=== PATIENT | male | born 1995 | race Caucasian/White ===

== ENCOUNTER 2019-06-05 15:15 | Emergency (ER) | payer MEDICAID ==
[~2019-06-05] VITALS: Ht 175.3 cm; Wt 77.3 kg
[2019-06-05 15:44] VITALS: Ht 175.3 cm; Wt 77.3 kg
[2019-06-05 18:32] VITALS: BP 117/63
[2019-06-12 15:10] LABS: AEROBE ID Final report (())
== END 2019-06-05 18:00 | disposition home or self-care (01) ==
LOC: D.ER 15:15
PROVIDERS: Family Medicine
DX: J06.9 Acute upper respiratory infection, unspecified (principal)